=== PATIENT | female | born 1945 | race Caucasian/White ===

== ENCOUNTER → 2017-09-10 | Emergency (ER) | payer OTHER ==
[~2017-09-10] VITALS: Ht 165.1 cm; Wt 59.0 kg
[~2017-09-10] MED LIST: LOSARTAN POTAS100 MG; NORVASC5 MG
== END | disposition home or self-care (01) ==
LOC: ER 15:43
DX: S70.01XA Contusion of right hip, initial encounter (principal); W18.09XA Striking against other object with subsequent fall, initial encounter; Y93.89 Activity, other specified; Y92.018 Other place in single-family (private) house as the place of occurrence of the external cause; Y99.8 Other external cause status

== ENCOUNTER 2024-11-30 13:01 | Emergency (ER) | payer OTHER ==
[~2024-11-30] VITALS: Ht 165.1 cm; Wt 59.9 kg
[~2024-11-30 13:01] MED LIST changes: +BISOPROLOL-HCT1 EACH PO; +COZAAR100 MG PO; +COZAAR25 MG
[2024-11-30] MEDS ORDERED: ACETAMINOPHEN 500 MG GEL..CAP PO ONE (17:00)
== END 2024-11-30 17:50 ==
LOC: ER 13:01
DX: M25.561 Pain in right knee (principal); M17.9 Osteoarthritis of knee, unspecified; I10 Essential (primary) hypertension; Z88.6 Allergy status to analgesic agent